=== PATIENT | female | born 1970 | race Caucasian/White ===

== ENCOUNTER 2017-11-08 10:23 | Day surgery (SDC) | payer MEDICAID, SELFPAY ==
--- NOTE | 2017-11-03 14:07 | EKG12_ITS ---
Test Reason : PRE OP Blood Pressure : / mmHG Vent. Rate : 098 BPM Atrial Rate : 098 BPM P-R Int : 112 ms QRS Dur : 076 ms QT Int : 350 ms P-R-T Axes : 057 023 017 degrees QTc Int : 446 ms Normal sinus rhythm Nonspecific T wave abnormality Abnormal ECG Confirmed by LORNA HERNDON, HARRISON ([id number]), technical editor LITO NATHAN ([id number] on 11/04/2017 11:53:21 AM Referred By: Ulysses Fuentes Confirmed By:HARRISON ROTHMAN MD
[2017-11-03 14:18] LABS: Hematocrit 44.8 % (37-47); Hemoglobin 14.7 g/dl (12.0-15.0); Mean Corp Hgb Conc 32.8 g/gl (32-36); Mean Corpuscular Hgb 28.9 pg (27.0-32.0); Mean Platelet Vol. 10.2 fl (6.2-12.0); Platelet Count 301 K/mm3 (150-450); RBC Distribution Width CV 15.5 % (11.6-14.6); Red Blood Count 5.09 M/mm3 (4.2-5.4); Scan Indicated on CBC? Y/N NO; White Blood Count 9.7 K/mm3 (4.4-11.0)
[2017-11-03 14:38] LABS: Hemoglobin A1c 6.3 % (4.2-6.3)
[2017-11-03 15:14] LABS: Anion Gap 9 (5-15); BUN 14 mg/dL (7-18); BUN/Creat Ratio 19.8 RATIO (10-20); Calcium,Total 9.1 mg/dL (8.5-10.1); Chloride 105 mmol/L (98-107); Creatinine, Serum 0.71 mg/dL (0.55-1.02); EST Glomerular Filtration Rate 95 mL/min (>60); Est Glom Filt Rate - Afr Amer 114 mL/min (>60); Glucose 131 mg/dL (70-110); Potassium 4.1 mmol/L (3.5-5.1); Sodium Level 140 mmol/L (136-145); Thyroid Stim Hormone (TSH) 1.74 uIU/mL (0.358-3.74)
[2017-11-08] VITALS (7 sets, daily range): BP systolic 118–133; BP diastolic 69–84; PULSE 82–92; RESP 12–18; TEMP 36.2–36.5; O2SAT 91–100; BMI 41.5
[2017-11-08 11:01] LABS: Bedside Glucose 130 mg/dL (70-110)
--- NOTE | 2017-11-08 12:10 | ETH_PTH ---
PATIENT: SE WILLS LOC: [facility] [place][id number] AGE/SX: 47/F ROOM: RE11/08/[address]: Dr. Ger Fuentes MD : [id number] BED: DIS: 11/08/2017 SPEC #: [id number] RECD: 11/09/17 07:35 STATUS: MAJO REDestiney #: [id number] HÉCTOR: 11/08/17 12:[address]: Ger Fuentes DEPT: SURGICAL PATHOLOGY RECD BY: Saurabh Farrell ENTERED: 11/09/17 10:41 SP TYPE: ETH TISS OTHR DR: Dr. Johnathan Ramirez MD Tissues: A - Ethmoid sinus, NOS B - Ethmoid sinus, NOS Procedures: Decalcification bone/plaque Surgery Specimen Level IV HEADER OPERATION: Functional endoscopic sinus surgery, navigation PRE-OP DIAGNOSIS: Chronic pansinusitis TISSUE SUBMITTED: A ? Left sinus contents, B ? Right sinus contents MICROSCOPIC DIAGNOSIS A. Left sinus contents: Fragments of respiratory mucosa with chronic inflammation and bone. B. Right sinus contents: Fragments of respiratory mucosa with chronic inflammation and bone. JANA:tresa 11/11/17 MICROSCOPIC DESCRIPTION Slides are reviewed. GROSS DESCRIPTION A - Received in fixative is one container labeled with the patient's name and designated left sinus contents. The specimen consists of multiple irregular fragments of martinez soft tissue mixed with fragments of bone that in aggregate measure 3 x 3 x 0.3 cm. The entire specimen is submitted in one cassette after decalcification. B - Received in fixative is one container labeled with the patient's name and designated right sinus contents. The specimen consists of multiple irregular fragments of martinez soft tissue mixed with fragments of bone including turbinates that in aggregate measure 3 x 3 x 0.3 cm. The entire specimen is submitted in one cassette after decalcification. / JANA:tresa 11/09/17 TC:3 CPT: 19253 x2, 28719 x2
[2017-11-08] MEDS: Clindamycin 900 MG/50 ML BAG 75 MG IV (12:17)
--- NOTE | 2017-11-08 13:45 | PCM.DC ---
You will use the following diet at home:: No restrictions Discharge Activity: May not drive while taking narcotic pain medications. Call your doctor if your incision/area has: Increased Pain/ Swelling, - - vision changes, eye pain Additional Dressing/Incision Instructions:: saline to both nostrils 4-5 times / day. DO NOT FORCEFULLY BLOW NOSE UNTIL SEEN IN CLINIC Allergies/Adverse Reactions: Allergies doxycycline Allergy (Verified 11/03/17 11:43) Rash ketorolac Allergy (Verified 11/03/17 11:43) Itching meclizine Allergy (Verified 11/03/17 11:43) Rash promethazine HCl [From Phenergan] Allergy (Verified 11/03/17 11:43) Itching cephalexin Adverse Reaction (Verified 11/03/17 11:43) Other morphine Adverse Reaction (Verified 11/03/17 11:43) Other nadolol Adverse Reaction (Verified 11/03/17 11:43) Other GAIN LAUNDRY SOAP Allergy (Uncoded 11/24/15 18:05) Rash Medications to take at Discharge Aspirin E.C. [Ecotrin] 81 mg PO DAILY@0800 11/24/15 Atorvastatin Calcium [Lipitor] 10 mg PO QHS 11/24/15 Clonazepam [Klonopin] 1 mg PO QHS 11/24/15 Diclofenac [Voltaren] 75 mg PO BIDCM 11/24/15 Duloxetine HCl 60 mg PO DAILY 11/24/15 Levothyroxine [Synthroid] 125 mcg PO MOTUWETHFRSA 11/24/15 Spironolactone [Aldactone] 100 mg PO DAILY 11/24/15 Topiramate [Topamax] 100 mg PO DAILY 11/24/15 BuPROPion (XL) [Wellbutrin Xl] 150 mg PO BID 11/03/17 Ergocalciferol [Vitamin D] 50,000 unit PO Q7D 11/03/17 Metformin HCl [Metformin HCl ER] 1,000 mg PO DAILY 11/03/17 Pramipexole Di-HCl [Mirapex] 0.125 mg PO DAILY 11/03/17 Pyridoxine HCl [Vitamin B-6] 100 mg PO DAILY 11/03/17 Vitamin E 400 unit PO DAILY 11/03/17 Acetaminophen/Codeine #3 [Tylenol#3] 1 tab PO Q6H PRN PRN #20 tab 11/08/17 MethylPREDNISolone DosePak [Medrol DosePak] 4 mg PO UD #1 box 11/08/17 Sulfamethoxazole/Trimethoprim [Bactrim 400-80 mg Tablet] 1 ea PO BID #14 tab 11/08/17 The following prescriptions were given: Acetaminophen/Codeine #3 [Tylenol#3] 1 tab PO Q6H PRN PRN #20 tab PRN Reason: Pain MethylPREDNISolone DosePak [Medrol DosePak] 4 mg PO UD #1 box Sulfamethoxazole/Trimethoprim [Bactrim 400-80 mg Tablet] 1 ea PO BID #14 tab Primary Care Physician: Johnathan Ramirez MD [Primary Care Provider] - Please Follow Up With: Kervin Fuentes MD When: 1 week - call to make appt
--- NOTE | 2017-11-08 15:06 | OP.PCM_ITS ---
Problem List (1) Chronic pansinusitis Status: Chronic Report of Operation Date of Procedure: 11/08/17 Pre-Operative Diagnosis: 1. chronic pansinusitis. 2. inferior turbinate hypertrophy, right and left Post-Operative Diagnosis: 1. chronic pansinusitis. 2. inferior turbinate hypertrophy, right and left Type of Anesthesia:: General Description of Procedure: on the day of the procedure, after appropriate informed consent was obtained, the patient was brought to the operating room and placed in supine position on the operating room table. he was placed under general endotracheal anesthesia; the endotracheal tube was secured, the eyes were lubricated. the facial recognition stickers and headset were placed for profess CT navigation. the bilateral nasal cavities were decongested with oxymetazoline-soaked pledgets. the superior attachment of the middle turbinate, inferior turbinates and uncinate processes were injected with lidocaine/epinephrine. a zero degree endoscope was placed into the left nasal cavity. the balloon sinuplasty catheter was advanced lateral to the middle turbinate and advanced into the frontal sinus. transillumination was seen and the balloon was advanced and inflated. the frontal recess was probed and tissue was removed from the frontal sinus. an uncinectomy/antrostomy was performed with a combination of a wendi elevator and a damaris. a back biter was used to open the antrostomy. a raj scizzor was used to remove the anterior/inferior portion of the middle turbinate. the ethmoid bulla was entered bluntly and a total ethmoidectomy was performed with a combination of a curette and a damaris. this was taken superiorly to the skull base and laterally to the lamina. a stankewicz maneuver was performed and no laminar defect was noted. the natural sphenoid os was located and opened with the microdebrider. the inferior turbinate was incised with a #15 blade. this was dissected submucosally with a wendi elevator, reduced using suction electrocautery and outfractured using a boies elevator. pledgets were placed and hemostasis was observed. a zero degree endoscope was placed into the right nasal cavity. the balloon sinuplasty catheter was advanced lateral to the middle turbinate and advanced into the frontal sinus. transillumination was seen and the balloon was advanced and inflated. the frontal recess was probed and tissue was removed from the frontal sinus. the uncinate process was readily visualized and an uncinectomy was performed with a wendi elevator and a damaris. a stankewicz maneuver was performed and a thin lamina with a small amount of orbital fat was noted. there was no bleeding in this area. this area was avoided for the remainder of the case. a raj scizzor was used to remove the anterior/ inferior portion of the middle turbinate. the ethmoid bulla was entered bluntly and a total ethmoidectomy was performed with a combination of a curette and a damaris. this was taken superiorly to the skull base and laterally to the lamina. the natural sphenoid os was located and opened with the microdebrider. the inferior turbinate was incised with a #15 blade. this was dissected submucosally with a wendi elevator, reduced using suction electrocautery and outfractured using a boies elevator. pledgets were placed and hemostasis was observed. at the end of the case, there was no increased resistance to retropulsion of the globes bilaterally. the pupils were equal. the patient was brought out of anesthesia and transferred to the PACU in stable condition. Grafts/Implants Used: none - Admit VTE Documentation VTE Mechan Device Prophylaxis: SCD's VTE Pharm Prophylaxis ordered?: No Reason prophylaxis not ordered:: Treatment Not Indicated
[2017-11-08] MEDS: Acetaminophen/Codeine #3 Tablet 1 TABLET PO (15:19)
--- NOTE | 2017-11-08 16:17 | PCM.PROGNOTE ---
- Physical Exam Vital Signs Temp Pulse Resp BP Pulse Ox 97.2 F L 85 14 126/84 H 95 11/08/17 14:45 11/08/17 14:45 11/08/17 14:45 11/08/17 14:45 11/08/17 14:45 Oxygen Delivery Method Room Air Weight: 109.8 kg Body Mass Index (BMI) 41.5 Intake and Output for Last 24 Hours 11/06/17 11/07/17 11/08/17 23:59 23:59 23:59 Intake Total 1400 / 1400 Balance 1400 / 1400 POC Glucose 11/08/17 10:50 POC Glucose 130 H Assessment/Plan s/p functional endoscopic sinus surgery -she notes typical post-FESS facial pain, but denies unilaterality -no entrapment on EOM exam, denies any diplopia on all gazes -no resistance to retropulsion -no subjective vision changes -we had a long discussion about postoperative management. i do not detect any abnormalities in bilateral ophtho exam. she wishes to go home as she states that she feels fine, notably her right eye. we discussed with erendira and her to go to the ER immediately if she has any eye pain, double vision, loss of vision or any other abnormality. they stated understanding.
== END 2017-11-08 16:06 | disposition home or self-care (01) ==
LOC: SDC 10:24 → AC 10:25
PROVIDERS: Family Provider Family Medicine; PCP Family Medicine; Visit Provider Otolaryngology
PROC: (CPT 30130; principal; 2017-11-08 11:40)
DX: J32.4 Chronic pansinusitis (principal); J34.3 Hypertrophy of nasal turbinates; I10 Essential (primary) hypertension; E78.00 Pure hypercholesterolemia, unspecified; F32.9 Major depressive disorder, single episode, unspecified; F41.9 Anxiety disorder, unspecified; G47.30 Sleep apnea, unspecified; G43.909 Migraine, unspecified, not intractable, without status migrainosus; G25.81 Restless legs syndrome; E11.9 Type 2 diabetes mellitus without complications; Z79.84 Long term (current) use of oral hypoglycemic drugs; Z79.82 Long term (current) use of aspirin; Z79.899 Other long term (current) drug therapy; Z87.891 Personal history of nicotine dependence; Z85.850 Personal history of malignant neoplasm of thyroid; E89.0 Postprocedural hypothyroidism
CPT/HCPCS: 30130; 31255; 31256; 36415; 80048; 82962; 83036; 84443; 85027; 88305; 88311; 93005; J7120; J2405

== ENCOUNTER 2019-11-05 18:46 | Observation (INO) | payer SELFPAY ==
[2019-11-05 18:47] VITALS: BP 130/87; PULSE 101; RESP 18; TEMP 37.2; O2SAT 97; BMI 43.0
--- NOTE | 2019-11-05 18:56 | EKG12_ITS ---
Test Reason : CP Blood Pressure : / mmHG Vent. Rate : 093 BPM Atrial Rate : 093 BPM P-R Int : 116 ms QRS Dur : 078 ms QT Int : 366 ms P-R-T Axes : 044 007 -08 degrees QTc Int : 455 ms Normal sinus rhythm Nonspecific T-Wave Abnormality Confirmed by MARYANN HERNDON, THEODORE ([id number]), photography editor MICHAEL VIZCAINO ([id number]) on 11/07/2019 1:44:15 PM Referred By: OLENA Confirmed By:THEODORE WOLF MD
--- NOTE | 2019-11-05 19:01 | ED.VIS.GEN ---
History of Present Illness Chief Complaint: Chest Pain Informant: Patient Onset: Today Context: Gradual Onset Timing: Continuous Current Severity: Moderate Maximum Severity: Moderate Narrative: The patient is a 49-year-old female with history of hypertension and diabetes the presents to the emergency department chest heaviness, nausea, vomiting. Patient states that she woke in the morning and had substernal chest heaviness. States she also felt short of breath. She vomited 3 times. She denies any abdominal pain. She denies any fevers or chills. She states the pain returned today and radiated into her arm. States never pain like this before. She denies any history of coronary vascular disease. She is never had a stress test or heart cath. She denies any recent infectious symptoms. Prior similar symptoms: No Recent Illness/Hospitalization: No Past Medical History - Allergies and Home Meds Allergies/Adverse Reactions: Allergies doxycycline Allergy (Verified 11/05/19 18:48) Rash ketorolac Allergy (Verified 11/05/19 18:48) Itching meclizine Allergy (Verified 11/05/19 18:48) Rash promethazine HCl [From Phenergan] Allergy (Verified 11/05/19 18:48) Itching cephalexin Adverse Reaction (Verified 11/05/19 18:48) Other morphine Adverse Reaction (Verified 11/05/19 18:48) Other nadolol Adverse Reaction (Verified 11/05/19 18:48) Other GAIN LAUNDRY SOAP Allergy (Uncoded 11/05/19 18:48) Rash Primary Care Physician: Johnathan Ramirez MD [Primary Care Provider] - Past Medical History: - - Pretension, high cholesterol, diabetes Surgical History: cholecystectomy, hysterectomy Smoking Status: Former smoker Review of Systems General: Denies: Chills, Fever, Sweats Eyes: Denies: Visual changes - bilaterally, Diplopia ENT: Denies: Rhinorrhea, Sore throat Cardiovascular: Reports: Chest pain. Denies: Palpitations Respiratory: Reports: Dyspnea. Denies: Cough, Dyspnea on exertion Gastrointestinal: Reports: Nausea, Vomiting. Denies: Abdominal pain, Diarrhea, Melena, Hematochezia Genitourinary: Denies: Dysuria, Hematuria, Frequency Musculoskeletal: Denies: Back pain, Extremity Pain Skin: Denies: Rash, Wounds Neurological: Denies: Headache, Weakness, Numbness Physical Exam Vital Signs/Narrative: Vital Signs Temp Pulse Resp BP Pulse Ox 11/05/19 18:47 98.9 F 101 H 18 130/87 H 97 Inital Vital Signs reviewed: Yes General: Well nourished, Well developed, No Acute Distress Head: Normocephalic, Atraumatic Eyes: Perrl, EOMI ENT: Moist mucous membranes, No rhinorrhea Neck: Supple, Nontender Cardiovascular: Regular rate, Regular rhythm, No murmurs Respiratory: No distress, CTA bilaterally, Chest nontender Abdomen: Soft, Nontender, Nondistended, Normal bowel sounds Back: Nontender, Normal Inspection Extremities: Nontender, No edema Skin: Normal color, No rash Neurological: Alert, Oriented x3, Cranial nerves II-XII grossly intact, Normal Strength, Normal Sensation Psychological: Normal affect, Normal Mood Diagnostic/Tx/Re-eval Chest X-Ray - ED: 2 View, Normal, Heart, Lungs, Mediastinum Clinical Impression(s) from Imaging Studies Chest X-Ray 11/05/19 19:15 IMPRESSION: Normal x-ray examination of the chest. Electronically Signed: Gabriel Taylor MD at 19:45 EST , Service support , Abnormal Lab Results 11/05/19 11/05/19 11/05/19 19:00 19:00 19:00 WBC 9.6 RBC 5.58 H Hgb 15.8 H Hct 48.6 H MCV 87.1 MCH 28.3 MCHC 32.5 RDW Std Deviation 45.2 H RDW Coeff of Kathy 14.2 Plt Count 295 MPV 10.4 Immature Gran % (Auto) 0.300 Neut % (Auto) 53.0 Lymph % (Auto) 36.7 [place] % (Auto) 6.9 Eos % (Auto) 2.7 Baso % (Auto) 0.4 Absolute Neuts (auto) 5.1 Absolute Lymphs (auto) 3.52 Nucleated RBC % 0 Sodium 139 Potassium 3.6 Chloride 105 Carbon Dioxide 30.0 Anion Gap 4 L BUN 10 Creatinine 0.74 Estim Creat Clear Calc 76.91 Est GFR (MDRD) Af Amer 108 Est GFR (MDRD) Non-Af 89 BUN/Creatinine Ratio 13.6 Glucose 118 H Calcium 8.9 Troponin I < 0.015 B-Natriuretic Peptide 5.9 - Rhythm Strip Rhythm Strip: Sinus Rhythm Rate: 90 Ectopy: None - EKG Initial EKG Interpretation: Sinus Rhythm, No Acute Injury Pattern, Non-Specific ST Changes Prior: Changed - Medical Decision Making The patient presents to the emergency department chest pain, dyspnea, nausea. EKG was obtained. There is new lateral T wave flattening and inversions of the T waves inferiorly which is a change from 2018. Patient was given Zofran and aspirin with improvement of her symptoms. Chest x-ray shows no evidence of volume overload. Cardiac enzymes were negative. However, based on the patient having chest pain with new EKG changes, history of hypertension and significant smoking history I do feel that she would benefit from observation for cardiac rule out. Patient was discussed with the hospitalist. Impression 1. Chest pain with EKG changes ED Disposition - Plan for ED Patient: Referrals: Johnathan Ramirez MD [Primary Care Provider] -
[2019-11-05 19:05] VITALS: BP 129/85; PULSE 88; RESP 28; TEMP 37.2; O2SAT 98
[2019-11-05] MEDS: Aspirin 81 MG TAB.CHEW 162 MG PO (19:12)
[2019-11-05] MEDS: Ondansetron 4 MG/2 ML Vial IV (19:12)
[2019-11-05] MEDS: 0.9% Normal Saline 1,000 ML 150 ML IV (19:13)
--- NOTE | 2019-11-05 19:15 | RAD_ITS ---
STUDY: X-RAY CHEST REASON FOR EXAM: Female, 49 years old. chest pain, shortness of breath TECHNIQUE: Frontal and lateral views of the chest. COMPARISON: July 09, 2013 FINDINGS: The lungs are clear and expanded. There is no demonstrated pleural abnormality. Normal size heart. Normal mediastinum and cindi. Normal visualized pulmonary arteries. Normal visualized aortic arch and descending thoracic aorta. Normal visualized thoracic spine. Normal visualized ribs, clavicles, and shoulders. There is no demonstrated abnormality of the visualized soft tissue structures of the upper abdomen. RAD/Chest PA and Lateral IMPRESSION: Normal x-ray examination of the chest. Electronically Signed: Gabriel Taylor MD at 19:45 EST , Service support ,
[2019-11-05 19:18] LABS: Absolute Lymphocyte Count 3.52 X10^3/uL (0.83-4.51); Absolute Neutrophil Count 5.1 X10^3/uL (2.0-7.7); Basophil# 0.04 X10^3/uL; Basophil% 0.4 % (0-1); Eosinophil# 0.26 X10^3/uL; Eosinophils% 2.7 % (0-5); Hematocrit 48.6 % (37-47); Hemoglobin 15.8 g/dL (12.0-15.0); Lymphocyte # 3.52 X10^3/ul (4.0); Lymphocyte % 36.7 % (19-41); Mean Corp Hgb Conc 32.5 g/dL (32-36); Mean Corpuscular Hgb 28.3 pg (27.0-32.0); Mean Corpuscular Volume 87.1 fL (81-99); Mean Platelet Vol. 10.4 fl (6.2-12.0); Monocyte# 0.66 X10^3/uL; Monocyte% 6.9 % (0-10); NRBC Flagged by Analyzer 0 % (0-5); Neutrophil # 5.08 X10^3/uL (2.7-7.7); Platelet Count 295 K/mm3 (150-450); RBC Distribution Width CV 14.2 % (11.6-14.6); RBC Distribution Width SD 45.2 fl (35.1-43.9); Red Blood Count 5.58 M/mm3 (4.2-5.4); White Blood Count 9.6 K/mm3 (4.4-11.0)
[2019-11-05 19:50] LABS: BNP,B-Type NATRIURETIC PEPTIDE 5.9 pg/mL (0-100)
[2019-11-05 19:54] LABS: Anion Gap 4 (5-15); BUN 10 mg/dL (7-18); BUN/Creat Ratio 13.6 RATIO (10-20); Calcium,Total 8.9 mg/dL (8.5-10.1); Chloride 105 mmol/L (98-107); Creatinine, Serum 0.74 mg/dL (0.55-1.02); EST Glomerular Filtration Rate 89 mL/min (>60); Est Glom Filt Rate - Afr Amer 108 mL/min (>60); Estimated Creatinine Clearance 76.91 ml/min; Glucose 118 mg/dL (74-106); Potassium 3.6 mmol/L (3.5-5.1); Sodium Level 139 mmol/L (136-145)
[2019-11-05 20:00] VITALS: BP 106/82; PULSE 78; RESP 20; TEMP 37; O2SAT 94
--- NOTE | 2019-11-05 20:23 | HP.PCM_ITS ---
Problem List (1) Diabetes Status: Chronic (2) Chest heaviness Status: Acute (3) Hypothyroid Status: Chronic (4) HLD (hyperlipidemia) Status: Chronic (5) Obesity Status: Chronic (6) Essential hypertension Status: Chronic History of Present Illness Date of Admission: 11/05/19 Chief Complaint: chest heaviness The patient is a 49 year old female patient with a past medical history of diabetes for the past several years, strong family history for coronary artery disease, history of smoking in the past, obesity to the emergency room with chest heaviness that began yesterday in the morning upon awakening. She describes a heaviness over her chest as a persistent feeling that does not radiate to either arm or jaw. She has a brother who is a little bit older who has had open heart surgery. The patient has had a negative stress test in the r emote past. When asked the patient what her last A1c was she was unable to tell me but she was able to look it up and find that it was 6.4 in February 2019. The patient denies fevers or chills, nausea vomiting or diarrhea. Will be admitted to the PCU for observation and further cardiac work-up. Past Medical History Past Medical History (Chronic Problems): Chronic Problems Diabetes (Chronic) Hypothyroid (Chronic) Chronic pansinusitis (Chronic) HLD (hyperlipidemia) (Chronic) Obesity (Chronic) Essential hypertension (Chronic) Allergies doxycycline Allergy (Verified 11/05/19 18:48) Rash ketorolac Allergy (Verified 11/05/19 18:48) Itching meclizine Allergy (Verified 11/05/19 18:48) Rash promethazine HCl [From Phenergan] Allergy (Verified 11/05/19 18:48) Itching cephalexin Adverse Reaction (Verified 11/05/19 18:48) Other morphine Adverse Reaction (Verified 11/05/19 18:48) Other nadolol Adverse Reaction (Verified 11/05/19 18:48) Other GAIN LAUNDRY SOAP Allergy (Uncoded 11/05/19 18:48) Rash Home Medications: Ambulatory Orders Medication Instructions Recorded Aspirin E.C. [Ecotrin] 81 mg PO DAILY@0800 11/24/15 Atorvastatin Calcium [Lipitor] 10 mg PO QHS 11/24/15 Clonazepam [Klonopin] 1 mg PO QHS 11/24/15 Diclofenac [Voltaren] 75 mg PO BIDCM 11/24/15 Duloxetine HCl 60 mg PO DAILY 11/24/15 Levothyroxine [Synthroid] 125 mcg PO MOTUWETHFRSA 11/24/15 Spironolactone [Aldactone] 100 mg PO DAILY 11/24/15 Ergocalciferol [Vitamin D] 50,000 unit PO Q7D 11/03/17 Metformin HCl [Metformin HCl ER] 1,000 mg PO DAILY 11/03/17 Pramipexole Di-HCl [Mirapex] 0.125 mg PO DAILY 11/03/17 Pyridoxine HCl [Vitamin B-6] 100 mg PO DAILY 11/03/17 Vitamin E 400 unit PO DAILY 11/03/17 buPROPion XL [Wellbutrin Xl] 150 mg PO BID 11/03/17 Acetaminophen/Codeine #3 1 tab PO Q6H PRN PRN #20 tab 11/08/17 [Tylenol#3] Lamotrigine [Lamotrigine ER] 100 mg PO DAILY 11/05/19 Soy Isofl/Blk Coh/Gr Tea/[place]er[place] 1 ea PO DAILY 11/05/19 [[employer] Caplet] Vitamin E 400 unit PO 11/05/19 Surgical History: cholecystectomy, hysterectomy Smoking Status: Former smoker - *Family History Sibling History Items: Heart Disease Review of Systems Constitutional: Denies: Chills, Fever, Weight Change HEENT: Denies: Head Aches, Sinus Congestion, Sinus Drainage Cardiovascular: Reports: Chest Pressure, Heaviness. Denies: Palpitations Respiratory: Denies: Cough, Shortness of breath at rest, Sputum production Gastrointestinal: Denies: Abdominal Pain, Nausea, Vomiting Genitourinary: Denies: Dysuria Musculoskeletal: Denies: Joint Pain, Joint Tenderness Skin: Denies: Rash, Wounds Neurological: Denies: Numbness, Tingling, Focal weakness Psychiatric: Denies: Anxiety, Depression, Homicidal Ideations, Suicidal Ideations Hematologic/ Lymphatic: Denies: Easy Bruising, Easy Bleeding VTE Information - Inpt Only VTE Present on Admission: No VTE Mechan Device Prophylaxis: None VTE Pharm Prophylaxis ordered?: Yes Patient Problems: Active and Suspected Problems Chest heaviness (Acute) - Physical Exam Vitals/I&O's: Vital Signs Temp Pulse Resp BP Pulse Ox 98.6 F 78 20 H 106/82 H 94 01/27/20 20:00 11/05/19 20:00 11/05/19 20:00 11/05/19 20:00 11/05/19 20:00 Oxygen Delivery Method Room Air Weight: 243 lb Body Mass Index (BMI) 43.0 General: Alert, Oriented x3, Cooperative HEENT: Atraumatic, Normocephalic Neck: Supple, No JVD Lungs: Clear to auscultation, Normal air movement Cardiovascular: Regular rate, Normal S1, Normal S2, No murmurs Abdomen: Bowel Sounds Present, Soft, Non Tender Extremities: No edema Skin: No rashes Musculoskeletal: No Tenderness to Palpation of Joints or Extremities Neurological: Neuro grossly intact Psych/Mental Status: Normal Affect, Appropriate Microbiology Past 72 Hours 11/05/19 19:02 Mucosa - Nose Influenza Types A,B Direct FA (ARJUN) - Final Laboratory Results 11/05/19 19:00: WBC 9.6, RBC 5.58 H, Hgb 15.8 H, Hct 48.6 H, MCV 87.1, MCH 28.3, MCHC 32.5, RDW Std Deviation 45.2 H, RDW Coeff of Kathy 14.2, Plt Count 295, MPV 10.4, Immature Gran % (Auto) 0.300, Neut % (Auto) 53.0, Lymph % (Auto) 36.7, [place] % (Auto) 6.9, Eos % (Auto) 2.7, Baso % (Auto) 0.4, Absolute Neuts (auto) 5.1, Absolute Lymphs (auto) 3.52, Nucleated RBC % 0 11/05/19 19:00: Sodium 139, Potassium 3.6, Chloride 105, Carbon Dioxide 30.0, Anion Gap 4 L, BUN 10, Creatinine 0.74, Estim Creat Clear Calc 76.91, Est GFR (MDRD) Af Amer 108, Est GFR (MDRD) Non-Af 89, BUN/Creatinine Ratio 13.6, Glucose 118 H, Calcium 8.9, Troponin I < 0.015 11/05/19 19:00: B-Natriuretic Peptide 5.9 Current Medications Sodium Chloride () 1,000 mls @ 150 mls/hr IV .Q6H40M ONE Stop: 11/06/19 01:35 Last Admin: 11/05/19 19:13 Dose: 150 mls/hr Documented by: Assessment/Plan All Active Problems Chest heaviness (Acute) Chronic Problems Diabetes (Chronic) Chronic pansinusitis (Chronic) HLD (hyperlipidemia) (Chronic) Obesity (Chronic) Essential hypertension (Chronic) Plan 1. Chest heaviness?admit to progressive care unit for observation, oxygen, nitro, aspirin per routine protocol, echo cardiac markers, clear exercise stress test in a.m. 2. Diabetes?continue current home medication?check hemoglobin A1c 3. Hyperlipidemia?continue statin medication?check FLP in a.m. 4. Hypertension?continue home medication, BMP in a.m. 5. Obesity?weight loss encouraged 6. VT prophylaxis?low molecular weight heparin Code Visit OBSV E&M: [id number] Initial observation care L2
--- NOTE | 2019-11-05 20:40 | EKG12_ITS ---
Test Reason : Blood Pressure : / mmHG Vent. Rate : 078 BPM Atrial Rate : 078 BPM P-R Int : 126 ms QRS Dur : 080 ms QT Int : 424 ms P-R-T Axes : 044 006 -37 degrees QTc Int : 483 ms Normal sinus rhythm Nonspecific T wave abnormality Prolonged QT Abnormal ECG When compared with ECG of 05-NOV-2019 18:53, MANUAL COMPARISON REQUIRED, DATA IS UNCONFIRMED Confirmed by MARIAELENA NOEL ([id number]), commissioning editor TAMARA CHIANG ([id number]) on 11/08/2019 10:47:00 AM Referred By: Confirmed By:MARIAELENA NOEL
[2019-11-05 20:42] VITALS: PULSE 75
[2019-11-05 20:44] VITALS: BMI 43.9
[2019-11-05 20:45] VITALS: BP 136/87; PULSE 76; RESP 16; TEMP 36.6; O2SAT 98
[2019-11-05 20:51] VITALS: BMI 44.0
[2019-11-05] MEDS: Atorvastatin Calcium 10 MG Tablet PO (22:07)
[2019-11-05] MEDS: Pramipexole Di-HCl 0.125 MG Tablet PO (22:07)
[2019-11-05] MEDS: buPROPion (XL) 150 MG TABLET.XL PO (22:07)
[2019-11-05] MEDS: clonazePAM 1 MG Tablet PO (22:07)
[2019-11-05 22:16] LABS: Bedside Glucose 126 mg/dL (70-110)
[2019-11-05 23:03] VITALS: PULSE 88
[2019-11-06 02:36] VITALS: BP 123/84; PULSE 79; RESP 12; TEMP 37.1; O2SAT 94
[2019-11-06 03:02] VITALS: PULSE 78
[2019-11-06 05:51] LABS: Absolute Lymphocyte Count 2.43 X10^3/uL (0.83-4.51); Basophil# 0.03 X10^3/uL; Basophil% 0.4 % (0-1); Eosinophil# 0.24 X10^3/uL; Eosinophils% 3.3 % (0-5); Hematocrit 44.9 % (37-47); Hemoglobin 14.4 g/dL (12.0-15.0); Lymphocyte # 2.43 X10^3/ul (4.0); Lymphocyte % 33.2 % (19-41); Mean Corp Hgb Conc 32.1 g/dL (32-36); Mean Corpuscular Hgb 28.1 pg (27.0-32.0); Mean Corpuscular Volume 87.7 fL (81-99); Mean Platelet Vol. 10.2 fl (6.2-12.0); Monocyte# 0.57 X10^3/uL; Monocyte% 7.8 % (0-10); NRBC Flagged by Analyzer 0 % (0-5); Neutrophil # 4.01 X10^3/uL (2.7-7.7); Neutrophil % 54.9 % (47-70); Platelet Count 264 K/mm3 (150-450); RBC Distribution Width CV 14.3 % (11.6-14.6); RBC Distribution Width SD 45.9 fl (35.1-43.9); Red Blood Count 5.12 M/mm3 (4.2-5.4); White Blood Count 7.3 K/mm3 (4.4-11.0)
--- NOTE | 2019-11-06 05:55 | EKG12_ITS ---
Test Reason : Blood Pressure : / mmHG Vent. Rate : 080 BPM Atrial Rate : 080 BPM P-R Int : 112 ms QRS Dur : 090 ms QT Int : 426 ms P-R-T Axes : 049 014 -53 degrees QTc Int : 491 ms Normal sinus rhythm T wave abnormality, consider lateral ischemia Prolonged QT Abnormal ECG When compared with ECG of 05-NOV-2019 20:59, MANUAL COMPARISON REQUIRED, DATA IS UNCONFIRMED Confirmed by MARIAELENA NOEL ([id number]), editor greeting card TAMARA CHIANG ([id number]) on 11/08/2019 10:46:48 AM Referred By: Confirmed By:MARIAELENA NOEL
[2019-11-06 06:17] VITALS: BP 125/86; PULSE 83; RESP 18; TEMP 36.9; O2SAT 94
[2019-11-06] MEDS: Aspirin E.C. 81 MG Tablet PO (06:22)
[2019-11-06] MEDS: Levothyroxine 125 MCG Tablet PO (06:22)
[2019-11-06 06:28] LABS: Anion Gap 4 (5-15); BUN 10 mg/dL (7-18); BUN/Creat Ratio 14.2 RATIO (10-20); Calcium,Total 8.1 mg/dL (8.5-10.1); Chloride 105 mmol/L (98-107); Cholesterol 129 mg/dL (200); EST Glomerular Filtration Rate 94 mL/min (>60); Est Glom Filt Rate - Afr Amer 114 mL/min (>60); Glucose 114 mg/dL (74-106); High Density Lipoprotein 33 mg/dL; Potassium 3.6 mmol/L (3.5-5.1); Sodium Level 139 mmol/L (136-145); Thyroid Stim Hormone (TSH) 2.04 uIU/mL (0.358-3.74); Triglycerides 139 mg/dL; Very Low Density Lipoprotein 28 mg/dL (5-40)
[2019-11-06 06:49] VITALS: PULSE 87
[2019-11-06 06:56] LABS: Bedside Glucose 128 mg/dL (70-110)
[2019-11-06 10:53] VITALS: BP 140/97; PULSE 95; RESP 16; TEMP 36.4; O2SAT 96
[2019-11-06] MEDS: DULoxetine Hcl 60 MG Capsule PO (10:56)
[2019-11-06] MEDS: Spironolactone 50 MG Tablet 100 MG PO (10:56)
[2019-11-06] MEDS: buPROPion (XL) 150 MG TABLET.XL PO (10:56)
[2019-11-06] MEDS: Diclofenac 75 MG Tablet PO (10:56)
[2019-11-06] MEDS: lamoTRIgine 100 MG Tablet PO (10:57)
[2019-11-06 11:20] LABS: Bedside Glucose 118 mg/dL (70-110)
--- NOTE | 2019-11-06 11:31 | DCINST_ITS ---
- Discharge Diagnoses Current Active Problems: Current Active and Chronic Problems 1. Chest pain, suspected noncardiac, unclear specific etiology 2. Diabetes mellitus type II 3. Hypertension 4. Hypothyroidism 5. Hyperlipidemia 6. Morbid obesity You will use the following diet at home:: Calorie/Carbohydrate Controlled (specify 1200, 1400, etc) - ADA 1800/cardiac diet recommended Your food should be the consistency of: Regular Your liquids should be the consistency of: Regular/Thin Discharge Activity: Return to Normal Activity May resume sexual activity in: No Restrictions Weight Bearing Status: Weight bearing as tolerated Call your doctor if you observe: Fever of 101 or Higher, Inability to urinate, Inability to have a bowel movement, Shortness of breath, Dizziness, Chest pain, Uncontrolled pain Instructions: CHEST PAIN, NonCardiac, CHEST PAIN, Uncertain Cause Additional Instructions: The chest pain you experienced is not from your heart. The stress test is negative and your heart squeezed normally. The manager cardiac cath you wore showed no problem with the rhythm of your heart. Additionally, the cardiac enzyme series performed remained normal. Sometimes chest pain can come from a problem with the muscles or skeleton and/or associated with straining or doing some strenuous activity you do not normally perform. Generally Aleve or Motrin will help allieviate this discomfort if these medications are appropriate for you to take. Chest pain can also be associated with anxiety and with this you frequently have racing heart, trouble sleeping and irritability. It can also come from gastroesophageal reflux disease or heartburn. People who smoke experience increased heartburn because nicotine dec reases the pressure in the lower esophageal sphincter and causes reflux. This type of discomfort is well treated with drinking a large glass of cold water which strips the acid out of the esophagus or taking Mylanta, Maalox or Pepto- Bismol. Other foods to avoid if you have reflux are chocolate, peppermint and calcium containing products such as Tums. Your cholesterol was assessed during admission with LDL 68, HDL 33, total chjolesterol 129, Triglycerides 139. The goal is to have your healthy cholesterol > 40. Avoiding tobacco products, eating healthy as well as regular aerobic exercise can help to increase the HDL. Allergies/Adverse Reactions: Allergies doxycycline Allergy (Verified 11/05/19 18:48) Rash ketorolac Allergy (Verified 11/05/19 18:48) Itching meclizine Allergy (Verified 11/05/19 18:48) Rash promethazine HCl [From Phenergan] Allergy (Verified 11/05/19 18:48) Itching cephalexin Adverse Reaction (Verified 11/05/19 18:48) Other morphine Adverse Reaction (Verified 11/05/19 18:48) Other nadolol Adverse Reaction (Verified 11/05/19 18:48) Other GAIN LAUNDRY SOAP Allergy (Uncoded 11/05/19 18:48) Rash Medications to take at Discharge Aspirin E.C. [Ecotrin] 81 mg PO DAILY@0800 11/24/15 Atorvastatin Calcium [Lipitor] 10 mg PO QHS 11/24/15 Clonazepam [Klonopin] 1 mg PO QHS 11/24/15 Diclofenac [Voltaren] 75 mg PO BIDCM 11/24/15 Duloxetine HCl 60 mg PO DAILY 11/24/15 Levothyroxine [Synthroid] 125 mcg PO MOTUWETHFRSA 11/24/15 Spironolactone [Aldactone] 100 mg PO DAILY 11/24/15 Ergocalciferol [Vitamin D] 50,000 unit PO Q7D 11/03/17 Metformin HCl [Metformin HCl ER] 1,000 mg PO DAILY 11/03/17 Pramipexole Di-HCl [Mirapex] 0.125 mg PO DAILY 11/03/17 Pyridoxine HCl [Vitamin B-6] 100 mg PO DAILY 11/03/17 Vitamin E 400 unit PO DAILY 11/03/17 buPROPion XL [Wellbutrin Xl] 150 mg PO BID 11/03/17 Acetaminophen/Codeine #3 [Tylenol#3] 1 tab PO Q6H PRN PRN #20 tab 11/08/17 Lamotrigine [Lamotrigine ER] 100 mg PO DAILY 11/05/19 Soy Isofl/Blk Coh/Gr Tea/Yerba [[employer] Caplet] 1 ea PO DAILY 11/05/19 Vitamin E 400 unit PO 11/05/19 Primary Care Physician: Johnathan Ramirez MD [Primary Care Provider] - Please follow up with your Primary Care Physician in: Follow-up within 3-5 days to review admission. Test Results: Test results from this visit will be discussed in further detail at your follow- up appointment, if applicable. Proposed Discharge Date: 11/06/19
--- NOTE | 2019-11-06 11:44 | STRESSREP_ITS ---
Stress Test Report Date: 11-06-2019 Procedure: Exercise tolerance test/imaging study Indications: Chest discomfort/heaviness-upon awakening Consent: Per the patient Procedure: The patient exercised on a Simone protocol for 6 minutes completing Stage II achieving a peak heart rate of 155 bpm (90% predicted maximal heart rate) with a peak blood pressure 170/94 mmHg and a peak MET capacity of 7 METs. The baseline ECG demonstrated normal sinus rhythm; nonspecific T wave abnormality. The peak exercise ECG demonstrated no obvious ECG changes. There was an isolated PVC during recovery. The functional capacity was considered average. There was notation of chest discomfort, shortness of breath, and lightheadedness during evaluation with spontaneous resolution in recovery. The examination was discontinued secondary to combination of chest discomfort, shortness of breath, and lightheadedness. Impression: 1. Technically adequate (percent predicted maximal heart rate greater than 85%) exercise tolerance test 2. Peak exercise ECG with no obvious ECG changes 3. There was an isolated PVC during recovery 4. Nuclear images pending Myocardial perfusion imaging study: Technique: The patient was injected with 14.4 mCi of technetium 99m Cardiolite and subsequently rest SPECT Cardiolite nuclear imaging was obtained in the horizontal long, vertical long, and short axis views. The patient exercised on a Simone protocol for 6 minutes completing Stage II achieving a peak heart rate of 155 bpm (90% predicted maximal heart rate) with a peak blood pressure 170/94 mmHg and a peak MET capacity of 7 METs. The patient was injected with 44.1 mCi of technetium 99m Cardiolite and subsequently stress SPECT Cardiolite nuclear imaging was obtained in the horizontal long, vertical long, and short axis views. A gated Cardiolite study at peak stress was obtained. Interpretation: Rest and stress SPECT Cardiolite nuclear imaging status post realignment, normalization, and attenuation correction, demonstrates the appearance of relative uniform tracer uptake and myocardial perfusion appearing within normal limits. There is end systolic thickening and brightening. The gated Cardiolite study demonstrates myocardial thickening and inward wall motion. The reported LVEF is 70 %. Impression: 1. Rest and stress SPECT Cardiolite nuclear imaging demonstrate relative uniform tracer uptake and myocardial perfusion appearing within normal limits. 2. The gated Cardiolite study reports an LVEF of 70 %. This note was generated with [employer] software. It may contain incorrect words, spelling, and punctuation that were not noted in checking the note before signing.
--- NOTE | 2019-11-06 11:57 | PCM.DC.SUM ---
Discharge Date and Diagnosis - Problem List Patient Problems: Active and Suspected Problems Chest heaviness (Acute) Date of Admission: 11/05/19 Date of Discharge: 11/06/19 - Primary Discharge Diagnosis Active and Suspected Problems 1. Chest pain, suspected noncardiac, unclear specific etiology but suspected musculoskeletal etiology 2. Diabetes mellitus type II 3. Hypertension 4. Hypothyroidism 5. Hyperlipidemia 6. Morbid obesity - Secondary Discharge Diagnosis Chronic Problems Diabetes (Chronic) Hypothyroid (Chronic) Chronic pansinusitis (Chronic) HLD (hyperlipidemia) (Chronic) Obesity (Chronic) Essential hypertension (Chronic) Hospital Course and Treatment Imaging Results: 11/06/19 05:55 Nuclear Stress Test - Treadmil [NM] AM (NON MEDS) The patient is a 49 y/o F w/ PMHx: Morbid obesity, hypertension, hyperlipidemia, hypothyroidism, diabetes mellitus type II who presented to the [facility] ED on 11/05/2019 with complaint of the onset of chest pain described as more pressure across her chest with no radiation noted to be worse with laughing with no recent specific increased activity or alterations but 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 On evaluation at discharge patient denied any significant chest discomfort and notes improved. In the ED work-up included EKG sinus rhythm without evidence of acute ischemia, CXR without acute process, unremarkable CBC and chemistry, cardiac enzyme set x 1 normal. The patient was admitted to PCU, maintained on cardiac telemetry, serial cardiac enzymes were obtained as well as serial EKGs which remained unremarkable. Patient underwent AM 11/06/2019 cardiac stress testing which was noted to be negative for inducible ischemia. FLP was obtained during admission and noted to be not marked appearing aside low HDL with recommendations for avoiding tobacco, improve diet as well as regular aerobic exercise to help increase HDL. Patient was discharged to home in stable condition with recommendation for follow-up with primary care physician within 3-5 days. DAY OF DISCHARGE PROGRESS NOTE: Subjective: Patient without acute event overnight per self and nursing report. Patient notes chest discomfort with pressure has lessened. She does admit that is worsened intermittently when she laughs hard. Patient denies fever, chills, nausea, emesis, abdominal pain or dyspnea. Patient agreeable to discharge to home. Patient will be discharged with follow-up with primary care physician within 3-5 days. Objective: T 97.6, heart rate 95, BP 140/97, respiratory rate 16, 96% on room air. Physical Examination: General: awake, alert, oriented x 3 and cooperative, seated upright in the bed, NAD previously the bathroom getting ready, notes chest discomfort improved. Skin: normal color, turgor, no icterus, cyanosis. HEENT: AT/NC, EOMI, PERRLA, MMM. Lungs: CTA bilaterally, moderate effort, mild decrease BL bases, no rales, ronchi or wheezing; Heart: Regular rate and rhythm; no gallop, rub audible. Abdomen: soft, morbidly obese, NTTP, ND, normal BS. Extremities: no cyanosis, clubbing, or edema. Neurological: patient awake, alert, oriented x 3; cognitive function appears intact upon questioning,; pupils equally reactive to light and accomodation; cranial nerves II-XII grossly normal, moving all 4 extremities, strength appropriate. Psychiatric: affect appears normal, no acute evidence of depressive or anxiety feelings. Assessment and Plan: Please see hospital summary above. Operations: None Procedures: EKG, Stress test Summary of Care Provided: The patient is a 49 year old F [] Patient Problems: Active and Suspected Problems Chest heaviness (Acute) - Physical Exam Vitals/I&O's: Vital Signs Temp Pulse Resp BP Pulse Ox 97.6 F L 95 16 140/97 H 96 11/06/19 10:53 11/06/19 10:53 11/06/19 10:53 11/06/19 10:53 11/06/19 10:53 Oxygen Delivery Method Room Air Weight: 248 lb 3.848 oz Body Mass Index (BMI) 43.9 Intake and Output for Last 24 Hours 11/04/19 11/05/19 11/06/19 23:59 23:59 23:59 Intake Total 952.5 / 952.5 147.5 / 147.5 Balance 952.5 / 952.5 147.5 / 147.5 Microbiology Past 72 Hours 11/06/19 Unknown Mucosa - Nose Respiratory Panel (PCR) - Final 11/05/19 19:02 Mucosa - Nose Influenza Types A,B Direct FA (ARJUN) - Final Laboratory Results 11/05/19 19:00: WBC 9.6, RBC 5.58 H, Hgb 15.8 H, Hct 48.6 H, MCV 87.1, MCH 28.3, MCHC 32.5, RDW Std Deviation 45.2 H, RDW Coeff of Kathy 14.2, Plt Count 295, MPV 10.4, Immature Gran % (Auto) 0.300, Neut % (Auto) 53.0, Lymph % (Auto) 36.7, [place] % (Auto) 6.9, Eos % (Auto) 2.7, Baso % (Auto) 0.4, Absolute Neuts (auto) 5.1, Absolute Lymphs (auto) 3.52, Nucleated RBC % 0 11/05/19 19:00: Sodium 139, Potassium 3.6, Chloride 105, Carbon Dioxide 30.0, Anion Gap 4 L, BUN 10, Creatinine 0.74, Estim Creat Clear Calc 76.91, Est GFR (MDRD) Af Amer 108, Est GFR (MDRD) Non-Af 89, BUN/Creatinine Ratio 13.6, Glucose 118 H, Calcium 8.9, Troponin I < 0.015 11/05/19 19:00: B-Natriuretic Peptide 5.9 11/05/19 21:55: Troponin I < 0.015 11/05/19 22:01: POC Glucose 126 H 11/06/19 01:10: Troponin I < 0.015 11/06/19 05:00: WBC 7.3, RBC 5.12, Hgb 14.4, Hct 44.9, MCV 87.7, MCH 28.1, MCHC 32.1, RDW Std Deviation 45.9 H, RDW Coeff of Kathy 14.3, Plt Count 264, MPV 10.2, Immature Gran % (Auto) 0.400, Neut % (Auto) 54.9, Lymph % (Auto) 33.2, [place] % (Auto) 7.8, Eos % (Auto) 3.3, Baso % (Auto) 0.4, Absolute Neuts (auto) 4.0, Absolute Lymphs (auto) 2.43, Nucleated RBC % 0 11/06/19 05:00: Sodium 139, Potassium 3.6, Chloride 105, Carbon Dioxide 30.0, Anion Gap 4 L, BUN 10, Creatinine 0.70, Estim Creat Clear Calc 81.30, Est GFR (MDRD) Af Amer 114, Est GFR (MDRD) Non-Af 94, BUN/Creatinine Ratio 14.2, Glucose 114 H, Calcium 8.1 L, Triglycerides 139, Cholesterol 129, LDL Cholesterol 68, VLDL Cholesterol 28, HDL Cholesterol 33 L, TSH 2.04 11/06/19 06:21: POC Glucose 128 H 11/06/19 11:16: POC Glucose 118 H Current Medications Aspirin (Ecotrin) 81 mg PO DAILY@0800 [facility] Last Admin: 11/06/19 06:22 Dose: 81 mg Documented by: Atorvastatin Calcium (Lipitor) 10 mg PO QHS [facility] Last Admin: 11/05/19 22:07 Dose: 10 mg Documented by: Bupropion HCl (Wellbutrin Xl) 150 mg PO BID [facility] Last Admin: 11/06/19 10:56 Dose: 150 mg Documented by: Clonazepam (Klonopin) 1 mg PO QHS [facility] Last Admin: 11/05/19 22:07 Dose: 1 mg Documented by: Dextrose (D50w Syringe) 0 gm IV X1 PRN; Protocol PRN Reason: Hypoglycemia [facility]icl[facility]enac [facility]) [facility] Last Admin: 11/06/19 10:56 Dose: 75 mg Documented by: Duloxetine HCl (Cymbalta) 60 mg PO DAILY [facility] Last Admin: 11/06/19 10:56 Dose: 60 mg Documented by: Enoxaparin Sodium (Lovenox) 40 mg SC DAILY [facility] Last Admin: 11/06/19 11:39 Dose: Not Given Documented by: Ergocalciferol (Vitamin D) 50,000 unit PO Q7D [facility] Glucagon () 1 mg IM .X1 PRN PRN Reason: Hypoglycemia Sodium Chloride () 250 mls @ 15 mls/hr IV .[id number] PRN PRN Reason: Saline Flush Sodium Chloride () 250 mls @ 15 mls/hr IV .[id number] PRN PRN Reason: Additional IVPB Infusion Insulin Human Lispro (Humalog Kwikpen (Bkc)) 0 unit [facility]; Protocol Last Admin: 11/06/19 11:40 Dose: Not Given Documented by: Lamotrigine (Lamictal) 100 mg PO DAILY [facility] Last Admin: 11/06/19 10:57 Dose: 100 mg Documented by: Levothyroxine Sodium (Synthroid) 125 mcg PO MoTuWeThFrSa@0600 [facility] Last Admin: 11/06/19 06:22 Dose: 125 mcg Documented by: Morphine Sulfate () 2 mg IV Q4H PRN PRN PRN Reason: Pain Score 6-10/10 Nitroglycerin (Nitrostat) 0.4 mg SUBLINGUAL Q5M PRN PRN Reason: CARDIAC/CHEST PAIN Oxycodone HCl (Oxyir) 5 mg PO Q4H PRN PRN PRN Reason: Pain Score 6-10/10 Pramipexole Dihydrochloride (Mirapex) 0.125 mg PO QHS [facility] Last Admin: 11/05/19 22:07 Dose: 0.125 mg Documented by: Sodium Chloride () 10 - 40 ml IV UD PRN PRN Reason: SALINE FLUSH Sp[facility]act[facility] ([facility]one) [facility] Last Admin: 11/06/19 10:56 Dose: 100 mg Documented by: Discharge Activity: Return to Normal Activity May resume sexual activity in: No Restrictions Weight Bearing Status: Weight bearing as tolerated Call your doctor if you observe: Fever of 101 or Higher, Inability to urinate, Inability to have a bowel movement, Shortness of breath, Dizziness, Chest pain, Uncontrolled pain Home Medications: Medications to take at Discharge Aspirin E.C. [Ecotrin] 81 mg PO DAILY@0800 11/24/15 Atorvastatin Calcium [Lipitor] 10 mg PO QHS 11/24/15 Clonazepam [Klonopin] 1 mg PO QHS 11/24/15 Diclofenac [Voltaren] 75 mg PO BID 11/24/15 Duloxetine HCl 60 mg PO DAILY 11/24/15 Levothyroxine [Synthroid] 125 mcg PO MOTUWETHFRSA 11/24/15 Spironolactone [Aldactone] 100 mg PO DAILY 11/24/15 Ergocalciferol [Vitamin D] 50,000 unit PO Q7D 11/03/17 Metformin HCl [Metformin HCl ER] 1,000 mg PO DAILY 11/03/17 Pramipexole Di-HCl [Mirapex] 0.125 mg PO DAILY 11/03/17 Pyridoxine HCl [Vitamin B-6] 100 mg PO DAILY 11/03/17 Vitamin E 400 unit PO DAILY 11/03/17 buPROPion XL [Wellbutrin Xl] 150 mg PO BID 11/03/17 Acetaminophen/Codeine #3 [Tylenol#3] 1 tab PO Q6H PRN PRN #20 tab 11/08/17 Lamotrigine [Lamotrigine ER] 100 mg PO DAILY 11/05/19 Soy Isofl/Blk Coh/Gr Tea/Yerba [[employer] Caplet] 1 ea PO DAILY 11/05/19 Vitamin E 400 unit PO 11/05/19 Primary Care Physician: Johnathan Ramirez MD [Primary Care Provider] - Please follow up with your Primary Care Physician in: Follow-up within 3-5 days to review admission. Patient Instructions: CHEST PAIN, NonCardiac, CHEST PAIN, Uncertain Cause Disposition: Home Minutes spent on discharge:: 35 Patient Condition:: Fair Medical Necessity - Tobacco Use Smoking Status: Former smoker Meaningful Use Info Meaningful Use Diagnoses (Choose all that apply): None applicable Code Visit OBSV E&M: 27971 Observation care discharge
--- NOTE | 2019-11-06 12:11 | PHA.DC.MR ---
Pharmacy Service has performed discharge medication reconciliation for this patient. No new medications issued at time of discharge medication review. medications reviewed are previously reported home medications. The patient's discharge medication list was reviewed for discrepancies and discrepancies were resolved. Home Medications Aspirin E.C. [Ecotrin] 81 mg PO DAILY@0800 11/24/15 Atorvastatin Calcium [Lipitor] 10 mg PO QHS 11/24/15 Clonazepam [Klonopin] 1 mg PO QHS 11/24/15 Diclofenac [Voltaren] 75 mg PO BIDCM 11/24/15 Duloxetine HCl 60 mg PO DAILY 11/24/15 Levothyroxine [Synthroid] 125 mcg PO MOTUWETHFRSA 11/24/15 Spironolactone [Aldactone] 100 mg PO DAILY 11/24/15 Ergocalciferol [Vitamin D] 50,000 unit PO Q7D 11/03/17 Metformin HCl [Metformin HCl ER] 1,000 mg PO DAILY 11/03/17 Pramipexole Di-HCl [Mirapex] 0.125 mg PO DAILY 11/03/17 Pyridoxine HCl [Vitamin B-6] 100 mg PO DAILY 11/03/17 Vitamin E 400 unit PO DAILY 11/03/17 buPROPion XL [Wellbutrin Xl] 150 mg PO BID 11/03/17 Acetaminophen/Codeine #3 [Tylenol#3] 1 tab PO Q6H PRN PRN #20 tab 11/08/17 Lamotrigine [Lamotrigine ER] 100 mg PO DAILY 11/05/19 Soy Isofl/Blk Coh/Gr Tea/Yerba [[employer] Caplet] 1 ea PO DAILY 11/05/19
== END 2019-11-06 11:34 | disposition home or self-care (01) ==
LOC: ED 19:27 → PCU 20:37
PROVIDERS: Admitting Provider Family Medicine; Emergency Provider Emergency Medicine; PCP Family Medicine; Visit Provider Family Medicine
DX: R07.89 Other chest pain (principal); Z23 Encounter for immunization; E11.9 Type 2 diabetes mellitus without complications; I10 Essential (primary) hypertension; R06.02 Shortness of breath; R11.2 Nausea with vomiting, unspecified; E03.9 Hypothyroidism, unspecified; E78.5 Hyperlipidemia, unspecified; E66.01 Morbid (severe) obesity due to excess calories; Z68.41 Body mass index [BMI] 40.0-44.9, adult; Z71.3 Dietary counseling and surveillance; Z79.899 Other long term (current) drug therapy; Z79.82 Long term (current) use of aspirin; Z79.84 Long term (current) use of oral hypoglycemic drugs; Z87.891 Personal history of nicotine dependence; Z82.49 Family history of ischemic heart disease and other diseases of the circulatory system
CPT/HCPCS: 36415; 71046; 78452; 80048; 80061; 82962; 83880; 84443; 84484; 85025; 87633; 87804; 93005; 93017; 96361; 96374; 99218; 99285; A9500; J7030; 90686; A4216; G0378; J2405

== ENCOUNTER 2022-08-03 23:11 | Emergency (ER) | payer MEDICAID, SELFPAY ==
[2022-08-03 23:12] VITALS: BP 137/91; PULSE 89; RESP 15; TEMP 36.6; O2SAT 100; BMI 40.7
--- NOTE | 2022-08-03 23:39 | EKG12_ITS ---
Test Reason : CHEST PAIN Blood Pressure : / mmHG Vent. Rate : 087 BPM Atrial Rate : 087 BPM P-R Int : 110 ms QRS Dur : 082 ms QT Int : 370 ms P-R-T Axes : 051 009 -21 degrees QTc Int : 445 ms Sinus rhythm with short CO Nonspecific ST and T wave abnormality Abnormal ECG Confirmed by MARYANN HERNDON, THEODORE ([id number]), sound editor MICHAEL VIZCAINO ([id number]) on 08/05/2022 10:44:20 AM Referred By: LEXII Confirmed By:THEODORE WOLF MD
[2022-08-03 23:49] VITALS: BP 143/101; PULSE 87; RESP 14; O2SAT 100; O2SAT 99
--- NOTE | 2022-08-03 23:52 | EDS_ITS ---
HPI History of Present Illness Chief Complaint: Chest Pain Detail of Chief Complaint: Right-sided chest pain after getting a small out of the car. Informant: patient Onset/Context/Timing Onset: Today Activity at onset: gradual Location: Right Chest Current Severity: Mild Maximum Severity: Mild Worsened By: Nothing Relieved By: Nothing Associated Symptoms: Positive for Dyspnea; Negative for Nausea, Vomiting, Diaphoresis, Cough, Fever, Lightheadedness, Acid Reflux or Palpitations Narrative Narrative: 51-year-old female complaining of right-sided chest discomfort since around 5:00 tonight. At the time she was in a small child out of the car. Mild shortness of breath. No nausea no diaphoresis. No cardiac history. No recent travel, surgery or immobilization. No calf pain or swelling. No hemoptysis. Is not pleuritic. Is been relatively constant since 5 nothing particular makes it better or worse. No prior history. She is diabetic. Prior Similar Symptoms: No Recent Illness/Hospitalization: No CVD Risk Factors: Positive for Hypertension, Diabetes and Hypercholesterolemia; Negative for Smoking PE Risk Factors: Negative for Recent Travel/Surgery, Recent Immobilization, Prior DVT or PE, Cancer or OCP + Smoking + >/=35 TAD Risk Factors: Negative for Marfan's Syndrome [facility] Medical History Hypercholesteremia Hypertension Thyroid cancer Home Medications aspirin 81 mg tablet,delayed release 81 mg PO DAILY@0800 anti platelets 11/24/15 [History Last Taken 11/04/19] atorvastatin 10 mg tablet 10 mg PO QHS cholesterol 11/24/15 [History Last Taken 11/04/19] clonazepam 1 mg tablet (Klonopin) 1 mg PO QHS blood pressure 11/24/15 [History Last Taken 11/04/19] diclofenac sodium 75 mg tablet,delayed release 75 mg PO BIDCM inflammation 11/24/15 [History Last Taken 11/04/19] duloxetine 60 mg capsule,delayed release 60 mg PO DAILY depression 11/24/15 [History Last Taken 11/04/19] levothyroxine 125 mcg tablet 100 mcg PO MOTUWETHFRSA thyroid 11/24/15 [History Last Taken 11/04/19] spironolactone 50 mg tablet 100 mg PO DAILY Check with primary doctor 11/24/15 [History Last Taken 11/04/19] dulaglutide 1.5 mg/0.5 mL subcutaneous pen injector (Trulicity) 1.5 mg subcut DAILY 08/03/22 [History Last Taken Unknown] pantoprazole 20 mg tablet,delayed release 20 mg PO DAILY 08/03/22 [History Last Taken Unknown] Allergy/AdvReac Type Severity Reaction Status Date / Time amoxicillin Allergy Other Verified 08/04/22 00:01 doxycycline Allergy Rash Verified 08/03/22 23:58 ketorolac Allergy Itching Verified 08/03/22 23:58 meclizine Allergy Rash Verified 08/03/22 23:58 promethazine HCl Allergy Itching Verified 08/03/22 23:58 [From Phenergan] cephalexin AdvReac Other Verified 08/03/22 23:58 morphine AdvReac Other Verified 08/03/22 23:58 nadolol AdvReac Other Verified 08/03/22 23:58 soap AdvReac Rash Verified 08/03/22 23:58 Surgical History History of partial hysterectomy Hx of cholecystectomy Social History Smoking Status: Former smoker ROS ROS ED ROS Narrative No recent illness. Symptoms began today. Review of Systems ROS Unobtainable: Denies due to encephalopathy Constitutional Constitutional ED: Denies chills or fever(s) Eyes Eyes: Reports none ENT ENT ED: Denies ear pain Cardiovascular Cardiovascular: Reports as per HPI and chest pain; Denies palpitations or racing heartbeat Respiratory/Chest Respiratory/Chest: Reports dyspnea; Denies cough Gastrointestinal Gastrointestinal: Denies abdominal pain Genitourinary Genitourinary ED: Denies dysuria or hematuria Musculoskeletal Musculoskeletal: Denies arthralgias Integumentary Denies abscess Neurologic Neurologic: Denies headache(s) Psychiatric Psychiatric: Denies anxiety Endocrine Endocrinology: Denies cold intolerance Hematologic/Lymphatic Hematologic/Lymphatic: Denies easy bleeding Allergic/Immunologic Allergic/Immunologic ED: Denies mouth swelling or tongue swelling EXAM Physical Exam Narrative Exam Narrative: 51-year-old no acute distress. Vital signs stable afebrile. Pulse ox under percent on room air no signs hypoxia. H EENT exam unremarkable. Neck nontender no JVD. Lungs clear to auscultation bilaterally. Heart regular rate and rhythm no murmur rate about 85. Chest wall nontender. Abdomen soft nontender. Normal bowel sounds no peritoneal signs. Right upper quadrant unremarkable. Back nontender. Moving all 4 extremities. Calves are nontender without edema or cords. Equal symmetrical radial pulses. Normal strength. Neurologic exam normal. Const Vital Signs: 08/03/22 23:12 08/03/22 23:43 08/03/22 23:49 Temperature 97.9 F Temperature Source Temporal Pulse Rate 89 87 Respiratory Rate 15 14 Respiratory Effort Normal Non-Labored Blood Pressure 137/91 H 143/101 H Blood Pressure Mean 106 115 Pulse Ox 100 100 Oxygen Delivery Method Room Air Room Air 08/03/22 23:49 08/04/22 00:17 08/04/22 01:04 Temperature Temperature Source Pulse Rate 88 84 Respiratory Rate 19 H 24 H Respiratory Effort Blood Pressure 127/81 H 138/86 H Blood Pressure Mean 96 103 Pulse Ox 99 97 96 Oxygen Delivery Method Room Air Room Air Room Air Positive well nourished, well developed and obese; Negative for cachectic, contractures or unkempt General Appearance ED: well developed and NAD; Negative for unkempt, cachectic, contractures or pallor Nutritional Appearance: obese; Negative for cachectic HEENT Reports moist mucous membranes normocephalic and atraumatic; Negative for trauma or tenderness Eyes PERRL and EOMs intact bilaterally General Eye ED: Negative for pale conjunctiva or scleral icterus Neck no lymphadenopathy, supple and no JVD General: Negative for tenderness Chest Wall inspection of chest normal and palpation of chest normal Chest: Negative for tenderness Resp normal respiratory effort and clear to auscultation bilaterally Effort and Inspection: Negative for respiratory distress or pain with movement Auscultation: Negative for rales, rhonchi or wheezes Cardio regular rate, regular rhythm, S1 normal heart sound, S2 normal heart sound and no murmurs Rate: Negative for bradycardia or tachycardic Rhythm: Negative for abnormal rhythm Peripheral Pulses: pulses 2+ throughout GI normal to inspection, nondistended, normoactive bowel sounds, soft to palpation, non-tender, non-distended and no masses Auscultation: Negative for hyperactive bowel sounds Palpation: Negative for mass Back/Spine no CVA tenderness and no thoracic nor lumbar tenderness General Back: Negative for CVA tenderness Cervical Spine: Negative for cervical spine tenderness Extremity normal to inspection General Extremety ED: Negative for edema or pulses abnormal General Extremity: Negative for edema or pulses abnormal Neuro oriented x3 and CN's II-XII intact bilaterally Sensorium / Orientation: awake, alert, oriented to person, oriented to place and oriented to time; Negative for confused, lethargic, stuporous or other Motor Exam: strength 5/5 throughout Psych mental status grossly normal Appearance: Negative for unkempt Attitude: No agitated Mood & Affect: Negative for depressed, anxious or tearful Skin no rashes or lesions noted and no wounds General Skin Exam: Negative for jaundice or pallor Rashes: No rashes noted Trauma: Negative for abrasion Heart Score History: Slightly/Non-Suspicious ECG: Normal Age: >45 - <65 years Risk Factors: 1 or 2 Risk Factors Troponin: </= Normal Limit Score: 2 MDM MDM MDM Narrative Medical decision making narrative: 51-year-old with atypical right-sided chest discomfort. No cardiac history. Clinically really does not sound cardiac. No prior history or risk factors for DVT or PE. She undergo cardiac work-up with a D-dimer. Exam is benign. Pain is normally not reproducible. Repeat exam at 1:55 AM patient doing well. Exam normal and unchanged. We went over her test results. The pain is not reproducible. Her work-up is negative. It does not sound cardiac. She will be discharged home with outpatient follow- up. Lab Data Attestation: I reviewed the patient's lab results. Lab results narrative: CBC normal. White count of 10 H&H 14 and 43. Platelets 289. D-dimer normal 0.3. Electrolytes unremarkable gap at 3 beater creatinine 19 and 0.7. Glucose 142. Troponin 7. Labs: Laboratory Results - last 24 hr 08/04/22 08/04/22 08/04/22 00:02 00:02 00:02 WBC 10.8 RBC 5.05 Hgb 14.2 Hct 43.5 MCV 86.1 MCH 28.1 MCHC 32.6 RDW Std Deviation 44.2 H RDW Coeff of Kathy 14.2 Plt Count 289 MPV 10.5 Immature Gran % (Auto) 0.700 Neut % (Auto) 63.3 Lymph % (Auto) 27.3 [place] % (Auto) 6.0 Eos % (Auto) 2.1 Baso % (Auto) 0.6 Absolute Neuts (auto) 6.8 Absolute Lymphs (auto) 2.94 Nucleated RBC % 0 D-Dimer Quant (PE/DVT) 0.30 Sodium 141 Potassium 4.5 Chloride 108 H Carbon Dioxide 30.0 Anion Gap 3 L BUN 19 H Creatinine 0.76 Estim Creat Clear Calc 73.26 Est GFR (MDRD) Af Amer 104 Est GFR (MDRD) Non-Af 86 BUN/Creatinine Ratio 25.1 H Glucose 142 H Calcium 8.9 Troponin I High Sens 7 Radiography Chest X-Ray - ED: 1 View, Read by ED Physician, Read by Radiologist, Heart, Lungs, Mediastinum, Bony Structures, No Acute Disease and Chronic Changes Diagnostic Testing: Clinical Impression(s) from Imaging Studies Chest X-Ray 08/04/22 00:01 IMPRESSION: No acute findings in the chest. Electronically Signed: Armond Cuevas MD at 1:45 EDT , Chest x-ray, portable, single view interpreted both by myself and the radiologist shows no acute abnormality. Normal cardiac silhouette. Normal mediastinum. Normal lung camilo. Rhythm Strip Rhythm Strip: Sinus Rhythm Rate: 87 Ectopy: None EKG Initial EKG: Attestation: I personally reviewed and interpreted this EKG as follows: Interpretation: Sinus Rhythm and No Acute Injury Pattern Comments: Normal sinus rhythm rate 87 no acute signs of GA or ischemia. Prior EKG tracings: available for review Prior: Unchanged Follow-up EKG: Attestation: I personally reviewed and interpreted this EKG as follows: Interpretation: Sinus Rhythm and No Acute Injury Pattern Comments: Repeat EKG was done at 2:05 AM. Again a normal sinus rhythm rate 81. No change from the EKG from [facility] or the prior EKG from October 2019. Prior EKG tracings: available for review Prior: Unchanged Discharge Plan Triage Chief Complaint: Chest Pain ED Provider: Pedro Ball Dx/Rx/DC Orders Clinical Impression: Chest pain, History of hypertension, History of diabetes mellitus Instructions: ED Chest Pain, Uncertain Cause Prescriptions: No Action atorvastatin 10 MG tablet 10 mg PO QHS clonazepam [Klonopin] 1 MG tablet 1 mg PO QHS aspirin 81 MG tablet 81 mg PO DAILY@0800 levothyroxine 125 MCG tablet 100 mcg PO MOTUWETHFRSA diclofenac sodium 75 MG tablet 75 mg PO BIDCM spironolactone 50 MG tablet 100 mg PO DAILY duloxetine 60 MG capsule,delayed release(DR/EC) 60 mg PO DAILY pantoprazole 20 mg tablet,delayed release (DR/EC) 20 mg PO DAILY Label Comments: TAKE 1 TABLET BY MOUTH 30 MINUTES BEFORE BREAKFAST ON AN EMPTY STOMACH Trulicity 1.5 mg/0.5 mL pen injector 1.5 mg SUBCUT DAILY Label Comments: INJECT THE CONTENTS OF 1 PEN SUBCUTANEOUSLY ONCE A WEEK. DISCARD PEN AFTER USE Primary Care Provider: Johnathan Ramirez Referrals: Johnathan Ramirez MD [Primary Care Provider] - 3-5 Days if not improving Activity Restrictions/Additional Instructions: Tylenol and/or Motrin for pain. Follow-up with your doctor if not improving. Return if worse. All your test tonight were normal including your EKG and chest x-ray. Disposition Disposition: Home, Self Care
--- NOTE | 2022-08-04 00:01 | RAD_ITS ---
EXAM: XR CHEST, 1 VIEW CLINICAL INDICATION: chest pain TECHNIQUE: Frontal view of the chest. This report was created using [employer] report generation technology. COMPARISON: Previous chest radiographs of 11/05/2019 and 07/09/2013. FINDINGS: LUNGS AND PLEURAL SPACES: Improved inspiratory effort. No acute pulmonary infiltrates or pleural effusion. No pneumothorax. HEART: Heart size is mildly enlarged with normal pulmonary vasculature. MEDIASTINUM: Central airways and mediastinal contour are unremarkable. Thoracic aorta is not elongated. BONES/JOINTS: Thoracic and cervical degenerative spurring. No acute osseous abnormality. SOFT TISSUES: Large body habitus. RAD/Chest 1 View (Portable) IMPRESSION: No acute findings in the chest. Electronically Signed: Armond Cuevas MD at 1:45 EDT ,
[2022-08-04 00:14] LABS: Absolute Lymphocyte Count 2.94 X10^3/uL (0.83-4.51); Absolute Neutrophil Count 6.8 X10^3/uL (2.0-7.7); Basophil# 0.06 X10^3/uL; Basophil% 0.6 % (0-1); Eosinophil# 0.23 X10^3/uL; Eosinophils% 2.1 % (0-5); Hematocrit 43.5 % (37-47); Hemoglobin 14.2 g/dL (12.0-15.0); Lymphocyte # 2.94 X10^3/ul (0.83-4.51); Lymphocyte % 27.3 % (19-41); Mean Corp Hgb Conc 32.6 g/dL (32-36); Mean Corpuscular Hgb 28.1 pg (27.0-32.0); Mean Corpuscular Volume 86.1 fL (81-99); Mean Platelet Vol. 10.5 fl (6.2-12.0); Monocyte# 0.65 X10^3/uL; NRBC Flagged by Analyzer 0 % (0-5); Neutrophil % 63.3 % (47-70); Platelet Count 289 K/mm3 (150-450); RBC Distribution Width CV 14.2 % (11.6-14.6); RBC Distribution Width SD 44.2 fl (35.1-43.9); Red Blood Count 5.05 M/mm3 (4.2-5.4); White Blood Count 10.8 K/mm3 (4.4-11.0)
[2022-08-04 00:17] VITALS: BP 127/81; PULSE 88; RESP 19; O2SAT 97
[2022-08-04 00:30] LABS: Anion Gap 3 (5-15); BUN 19 mg/dL (7-18); BUN/Creat Ratio 25.1 RATIO (10-20); Calcium,Total 8.9 mg/dL (8.5-10.1); Chloride 108 mmol/L (98-107); Creatinine, Serum 0.76 mg/dL (0.55-1.02); EST Glomerular Filtration Rate 86 mL/min (>60); Est Glom Filt Rate - Afr Amer 104 mL/min (>60); Estimated Creatinine Clearance 73.26 ml/min; Glucose 142 mg/dL (74-106); Potassium 4.5 mmol/L (3.5-5.1); Sodium Level 141 mmol/L (136-145); Troponin-I HS (w/2H Reflex) 7 pg/mL (3.0-54.0)
[2022-08-04 01:04] VITALS: BP 138/86; PULSE 84; RESP 24; O2SAT 96
--- NOTE | 2022-08-04 02:00 | EKG12_ITS ---
Test Reason : REPEAT CHEST PAIN Blood Pressure : / mmHG Vent. Rate : 081 BPM Atrial Rate : 081 BPM P-R Int : 122 ms QRS Dur : 082 ms QT Int : 430 ms P-R-T Axes : 052 019 -14 degrees QTc Int : 499 ms Normal sinus rhythm Nonspecific T wave abnormality Abnormal ECG Confirmed by MARYANN HERNDON, THEODORE ([id number]), material expeditor MICHAEL VIZCAINO ([id number]) on 08/05/2022 10:44:35 AM Referred By: LEXII Confirmed By:THEODORE WOLF MD
[2022-08-04 02:08] LABS: Reflex Troponin-HS? (from REC) Y
[2022-08-04 02:40] VITALS: BP 134/98; PULSE 79; RESP 17; O2SAT 97
== END 2022-08-04 02:45 | disposition home or self-care (01) ==
PROVIDERS: Emergency Provider Emergency Medicine; PCP Family Medicine; Visit Provider Emergency Medicine
DX: R07.9 Chest pain, unspecified (principal); E78.00 Pure hypercholesterolemia, unspecified; Z87.891 Personal history of nicotine dependence; Z79.82 Long term (current) use of aspirin; Z79.899 Other long term (current) drug therapy
CPT/HCPCS: 71045; 80048; 84484; 85025; 85379; 93005; 99284; A4216

== ENCOUNTER 2023-08-14 08:32 | Emergency (ER) | payer SELFPAY ==
[2023-08-14 08:33] VITALS: BP 134/94; PULSE 75; RESP 18; TEMP 36.6; O2SAT 99; BMI 42.7
[2023-08-14 08:44] VITALS: TEMP 36.6; O2SAT 99
--- NOTE | 2023-08-14 09:35 | EDS_ITS ---
HPI History of Present Illness Chief Complaint: Fall Narrative Narrative: 53-year-old female presenting with bilateral knee pain and left wrist pain. [facility] reportedly tripping over her flip-flop. She states she fell onto her bilateral knees and bilateral hands and she complains of pain in the left medial wrist dorsally and dorsally. The pain in the right knee is just above the patella on the right. She states that the left knee pain is just below the patella on the medial aspect. She reports bruising bilaterally. She has been ambulatory without a repeat fall. She denies head injury or LOC. She states she took Aleve last evening. She went to the urgent care today who told her that she probably has a left wrist fracture and sent her to the ED. She reports that they do not have x-rays today. [facility] Medical History Hypercholesteremia Hypertension Thyroid cancer Home Medications aspirin 81 mg tablet,delayed release 81 mg PO DAILY@0800 anti platelets 11/24/15 [History Last Taken 11/04/19] atorvastatin 10 mg tablet 10 mg PO QHS cholesterol 11/24/15 [History Last Taken 11/04/19] clonazepam 1 mg tablet (Klonopin) 1 mg PO QHS blood pressure 11/24/15 [History Last Taken 11/04/19] diclofenac sodium 75 mg tablet,delayed release 75 mg PO BIDCM inflammation 11/24/15 [History Last Taken 11/04/19] duloxetine 60 mg capsule,delayed release 60 mg PO DAILY depression 11/24/15 [History Last Taken 11/04/19] levothyroxine 125 mcg tablet 100 mcg PO MOTUWETHFRSA thyroid 11/24/15 [History Last Taken 11/04/19] spironolactone 50 mg tablet 100 mg PO DAILY Check with primary doctor 11/24/15 [History Last Taken 11/04/19] dulaglutide 1.5 mg/0.5 mL subcutaneous pen injector (Trulicity) 1.5 mg subcut DAILY 08/03/22 [History Last Taken Unknown] pantoprazole 20 mg tablet,delayed release 20 mg PO DAILY 08/03/22 [History Last Taken Unknown] Allergy/AdvReac Type Severity Reaction Status Date / Time amoxicillin Allergy Other Verified 08/14/23 08:36 doxycycline Allergy Rash Verified 08/14/23 08:36 ketorolac Allergy Itching Verified 08/14/23 08:36 meclizine Allergy Rash Verified 08/14/23 08:36 promethazine HCl Allergy Itching Verified 08/14/23 08:36 [From Phenergan] cephalexin AdvReac Other Verified 08/14/23 08:36 morphine AdvReac Other Verified 08/14/23 08:36 nadolol AdvReac Other Verified 08/14/23 08:36 soap AdvReac Rash Verified 08/14/23 08:36 Surgical History History of partial hysterectomy Hx of cholecystectomy Social History Smoking Status: Former smoker EXAM Physical Exam Const Vital Signs: 08/14/23 08:33 08/14/23 08:44 Temperature 97.9 F 97.9 F Temperature Source Temporal Pulse Rate 75 Respiratory Rate 18 Respiratory Effort Normal Non-Labored Respiratory Depth Normal Respiratory Pattern Normal Blood Pressure 134/94 H Blood Pressure Mean 107 Pulse Ox 99 99 Oxygen Delivery Method Room Air Room Air General Appearance ED: Negative for pallor HEENT Reports normocephalic Eyes PERRL and EOMs intact bilaterally Resp normal respiratory effort Cardio regular rate and regular rhythm Narrative: Deferred Extremity Extremity Narrative: Left wrist: Tenderness palpation on the medial aspect dorsally. No obvious deformity. No pain in the anatomical snuffbox. Pain is elicited with extension and less with flexion. Left hand neurovascular intact brisk cap refill to all 5 fingers. Left knee: Tenderness to palpation the medial inferior aspect of the patella. No obvious deformity. There is edema and bruising noted at the patella. Left knee extensor mechanism is intact. Flexion and extension are maintained. There is no ligamentous laxity. Right knee: Tenderness to palpation over the superior lateral aspect of the right patella. No obvious deformity. There is edema and bruising noted at the patella. Right knee extensor mechanism is intact. Flexion extension are maintained. There is no ligamentous laxity. Neuro oriented x3 and CN's II-XII intact bilaterally Sensorium / Orientation: alert Motor Exam: strength 5/5 throughout Psych mental status grossly normal Attitude: No agitated Skin no rashes or lesions noted and no wounds General Skin Exam: Negative for jaundice or pallor MDM MDM MDM Narrative Medical decision making narrative: Patient with pain in bilateral knees and left wrist. On examination there are some evidence of contusions but no evidence of fracture based on examination findings. X-rays of the left wrist, right knee, left knee on my interpretation no acute fractures or subluxations. The radiologist interprets this and agrees. Patient will continue her anti-inflammatories at home. She was put in a wrist splint for her left wrist for comfort. She has not any crutches. Discharged home in stable condition. Impression: 1. Mechanical fall 2. Bilateral knee contusions 3. Left wrist contusion Radiography Diagnostic Testing: Clinical Impression(s) from Imaging Studies Knee X-Ray 08/14/23 10:00 IMPRESSION: Mild arthrosis Electronically Signed: Pacheco Aponet MD at 10:23 EST , Knee X-Ray 08/14/23 10:00 IMPRESSION: Mild arthrosis Electronically Signed: Pacheco Aponte MD at 10:22 EST , Wrist X-Ray 08/14/23 10:00 IMPRESSION: Normal x-ray examination of the wrist. Electronically Signed: Pacheco Aponte MD at 10:22 EST , Discharge Plan Triage Chief Complaint: Fall ED Provider: Tacos Perez Dx/Rx/DC Orders Instructions: ED Contusion, Lower Extremity, ED Contusion, Upper Extremity Prescriptions: No Action atorvastatin 10 MG tablet 10 mg PO QHS clonazepam [Klonopin] 1 MG tablet 1 mg PO QHS aspirin 81 MG tablet 81 mg PO DAILY@0800 levothyroxine 125 MCG tablet 100 mcg PO MOTUWETHFRSA diclofenac sodium 75 MG tablet 75 mg PO BIDCM spironolactone 50 MG tablet 100 mg PO DAILY duloxetine 60 MG capsule,delayed release(DR/EC) 60 mg PO DAILY pantoprazole 20 mg tablet,delayed release (DR/EC) 20 mg PO DAILY Patient Comments: TAKE 1 TABLET BY MOUTH 30 MINUTES BEFORE BREAKFAST ON AN EMPTY STOMACH Trulicity 1.5 mg/0.5 mL pen injector 1.5 mg SUBCUT DAILY Patient Comments: INJECT THE CONTENTS OF 1 PEN SUBCUTANEOUSLY ONCE A WEEK. DISCARD PEN AFTER USE Primary Care Provider: Johnathan Ramirez Referrals: Johnathan Ramirez MD [Primary Care Provider] - Disposition Disposition: Home, Self Care
--- NOTE | 2023-08-14 10:00 | RAD_ITS ---
STUDY: X-RAY - LEFT WRIST REASON FOR EXAM: Female, 53 years old. pain TECHNIQUE: 3 view(s) of the wrist were obtained. COMPARISON: None. FINDINGS: Normal visualized distal radius and ulna. Normal radiocarpal articulation. Normal distal radioulnar articulation. Normal carpal bones. Normal carpal articulations. Normal carpometacarpal articulation of the thumb. Normal second through fifth carpometacarpal articulations. Normal visualized metacarpal bones. The soft tissue structures are unremarkable. RAD/Wrist min 3 Views IMPRESSION: Normal x-ray examination of the wrist. Electronically Signed: Pacheco Aponte MD at 10:22 EST ,
--- NOTE | 2023-08-14 10:00 | RAD_ITS ---
STUDY: X-RAY - RIGHT KNEE REASON FOR EXAM: Female, 53 years old. pain TECHNIQUE: 4 view(s) of the knee. COMPARISON: None. FINDINGS: Normal visualized distal femur. Normal visualized proximal tibia and fibula. Normal proximal tibiofibular articulation. There is mild degenerative arthrosis of the medial femorotibial compartment. Normal lateral femorotibial compartment. There is mild degenerative arthrosis of the patellofemoral articulation. The soft tissue structures are unremarkable. RAD/Knee 4 or More Views IMPRESSION: Mild arthrosis Electronically Signed: Pacheco Aponte MD at 10:23 EST ,
--- NOTE | 2023-08-14 10:00 | RAD_ITS ---
STUDY: X-RAY - LEFT KNEE REASON FOR EXAM: Female, 53 years old. Pain TECHNIQUE: 4 view(s) of the knee. COMPARISON: None. FINDINGS: Normal visualized distal femur. Normal visualized proximal tibia and fibula. Normal proximal tibiofibular articulation. There is mild degenerative arthrosis of the medial femorotibial compartment. Normal lateral femorotibial compartment. There is mild degenerative arthrosis of the patellofemoral articulation. The soft tissue structures are unremarkable. RAD/Knee 4 or More Views IMPRESSION: Mild arthrosis Electronically Signed: Pacheco Aponte MD at 10:22 EST ,
[2023-08-14 10:58] VITALS: BP 105/81; PULSE 69; RESP 18; O2SAT 95
== END 2023-08-14 10:59 | disposition home or self-care (01) ==
PROVIDERS: Emergency Provider Student in an Organized Health Care Education/Training Program; PCP Family Medicine; Visit Provider Student in an Organized Health Care Education/Training Program
DX: S80.02XA Contusion of left knee, initial encounter (principal); S80.01XA Contusion of right knee, initial encounter; S60.212A Contusion of left wrist, initial encounter; W19.XXXA Unspecified fall, initial encounter; Z87.891 Personal history of nicotine dependence
CPT/HCPCS: 73110; 73564; 99283

== ENCOUNTER → 2025-07-29 | Outpatient (CLI) | payer MEDICAID, SELFPAY | END | disposition home or self-care (01) | LOC: LABSPEC 15:09 | PROVIDERS: PCP Family Medicine; Referring Provider Otolaryngology; Visit Provider Otolaryngology | DX: J32.9 Chronic sinusitis, unspecified (principal) ==

== ENCOUNTER → 2025-07-30 | Outpatient (CLI) | payer MEDICAID, SELFPAY | END | disposition home or self-care (01) | LOC: LABSPEC 16:23 | PROVIDERS: PCP Family Medicine | DX: J32.9 Chronic sinusitis, unspecified (principal) | CPT/HCPCS: 87070; 87205 ==